=== PATIENT | male | born 1950 | race Caucasian/White ===

== ENCOUNTER 2016-06-25 05:15 | Day surgery (SDC) | payer MEDICARE, BC ==
[2016-06-18 10:00] LABS: HEMATOCRIT 41.8 % (37.9-51.0); HEMOGLOBIN 14.2 g/dL (13.5-17.0); HGB HCT DIFFERENCE 0.8; MEAN CORPUSCULAR HEMOGLOBIN 31.7 pg (27.0-33.4); MEAN CORPUSCULAR HGB CONC 33.9 g/dL (32.0-36.0); MEAN CORPUSCULAR VOLUME 94 fl (80-97); RED BLOOD COUNT 4.46 10^6/uL (4.35-5.55); RED CELL DISTRIBUTION WIDTH 13.5 % (11.5-14.0); WHITE BLOOD COUNT 5.8 10^3/uL (4.0-10.5)
[2016-06-18 10:00] LABS: APPEARANCE,URINE CLEAR; BILIRUBIN,URINE NEGATIVE (NEGATIVE); GLUCOSE, URINE NEGATIVE (NEGATIVE); KETONES,URINE NEGATIVE (NEGATIVE); LEUKOCYTE ESTERASE,URINE NEGATIVE (NEGATIVE); NITRITE,URINE NEGATIVE (NEGATIVE); PROTEIN,URINE NEGATIVE (NEGATIVE); URINE SPECIFIC GRAVITY 1.021; UROBILINOGEN,URINE NEGATIVE mg/dL (<2.0)
[2016-06-18 10:18] LABS: ANION GAP 10 (5-19); BLOOD UREA NITROGEN 20 mg/dL (7-20); CALCIUM 9.1 mg/dL (8.4-10.2); CARBON DIOXIDE 23 mmol/L (22-30); CHLORIDE 107 mmol/L (98-107); CREATININE RESULT 1.01 mg/dL (0.52-1.25); GLUCOSE 91 mg/dL (75-110); POTASSIUM 4.5 mmol/L (3.6-5.0); SODIUM 140.2 mmol/L (137-145)
[~2016-06-25 05:15] MED LIST: CLINDAMYCIN 600 MG/D5W RTU 600 MG/50 ML RTUPB IV PRN; LACTATED RINGERS 1000 ML IV PRN; LIDOCAINE 0.5% INJ-PF (5 MG/ML) 50 ML SDV SUBCUT PRN
[2016-06-25] MEDS ORDERED: LIDOCAINE 1%/EPINEPHRINE INJ 20 ML VIAL ONE (06:41)
[2016-06-25] MEDS ORDERED: BUPIVACAINE HCL 0.25 % INJ/PF (2.5 MG/1 ML) 30 ML VIAL ONE (06:41)
[2016-06-25] MEDS ORDERED: FENTANYL CITRATE INJ/PF 100 MCG/2 ML AMPUL ONE ×2 (07:14)
[2016-06-25] MEDS ORDERED: PROPOFOL INJ 200 MG/20 ML VIAL IV ONE (07:15)
[2016-06-25] MEDS ORDERED: MIDAZOLAM 2 MG/2 ML INJ ONE (07:15)
[2016-06-25] MEDS ORDERED: MEPERIDINE HCL/PF INJ 25 MG/1 ML DISP.SYRIN IV PRN (07:28)
[2016-06-25] MEDS ORDERED: FENTANYL CITRATE INJ/PF 100 MCG/2 ML AMPUL IV PRN ×3 (07:28)
[2016-06-25] MEDS ORDERED: ONDANSETRON HCL INJ/PF 4 MG/2 ML SDV IV PRN (07:28)
[2016-06-25] MEDS ORDERED: DIPHENHYDRAMINE HCL 50 MG/ML VIAL IV PRN (07:28)
--- NOTE | 2016-06-25 07:58 | Operative Report ---
Operative Report DATE OF SURGERY: 06/25/16 PREOPERATIVE DIAGNOSIS: Left carpal tunnel syndrome OPERATION: Left carpal tunnel release ANESTHESIA: LMAC TISSUE REMOVED OR ALTERED: None ESTIMATED BLOOD LOSS: minimal PROCEDURE: With the patient supine on the operating table left upper extremity is prepped and draped sterile fashion. The skin overlying the radial carpal joint and the thenar crease is insufflated with accommodation Marcaine, Xylocaine, and epinephrine. A 15 blade is used to make a skin incision that begins ulnar to the palmaris longus extends obliquely across the radiocarpal crease and into the thenar crease. Sharp dissection is carried incision down to the underlying palmar fascia. A Kermit elevator is placed underneath the palmar fashion. A 15 blade is used to transect the palmar fascia. The median nerve is identified deep to this. It's free proximally and distally from any constriction. The wound is irrigated. His closures and rapid Vicryl followed by nylon. A sterile compressive dressing was applied and the patient's returned to the PACU.
[2016-06-25] MEDS ORDERED: ONDANSETRON 4 MG TAB.RAPDIS SL PRN (08:42)
[2016-06-25] MEDS ORDERED: OXYCODONE HCL IR 5 MG TABLET PO PRN (08:42)
[2016-06-25 09:47] VITALS: BP 122/73
== END 2016-06-25 09:45 | disposition home or self-care (01) ==
LOC: OROUT 05:15
PROVIDERS: ATTEND Orthopaedic Surgery
PROC: 01N50ZZ Release Median Nerve, Open Approach (ICD-10-PCS; principal; 2016-06-25 07:30)
DX: G56.02 Carpal tunnel syndrome, left upper limb (principal); E78.5 Hyperlipidemia, unspecified; M10.9 Gout, unspecified; M19.012 Primary osteoarthritis, left shoulder; M19.011 Primary osteoarthritis, right shoulder; Z88.0 Allergy status to penicillin; Z88.2 Allergy status to sulfonamides
CPT/HCPCS: 36415; 85027; 80048; 81001; 64721; J2250; J3010; J3490; 1810; J2704

== ENCOUNTER 2016-07-30 05:13 | Day surgery (SDC) | payer MEDICARE, BC ==
[2016-07-28 11:08] LABS: ABSOLUTE EOSINOPHILS # (AUTO) 0.1 10^3/uL (0.0-0.6); ABSOLUTE LYMPHOCYTES (AUTO) 1.6 10^3/uL (0.5-4.7); ABSOLUTE MONOCYTES (AUTO) 0.6 10^3/uL (0.1-1.4); ABSOLUTE NEUT (AUTO) 4.5 10^3/uL (1.7-8.2); BASOPHILS % (AUTO) 0.4 % (0-2); EOSINOPHILS % (AUTO) 1.3 % (0-6); HEMATOCRIT 44.5 % (37.9-51.0); HEMOGLOBIN 15.4 g/dL (13.5-17.0); HGB HCT DIFFERENCE 1.7; LYMPHOCYTES % (AUTO) 23.6 % (13-45); MEAN CORPUSCULAR HEMOGLOBIN 32.4 pg (27.0-33.4); MEAN CORPUSCULAR HGB CONC 34.6 g/dL (32.0-36.0); MEAN CORPUSCULAR VOLUME 94 fl (80-97); MONOCYTES % (AUTO) 9.4 % (3-13); RED BLOOD COUNT 4.75 10^6/uL (4.35-5.55); RED CELL DISTRIBUTION WIDTH 13.7 % (11.5-14.0); SEGMENTED NEUTROPHILS % (AUTO) 65.3 % (42-78); WHITE BLOOD COUNT 6.8 10^3/uL (4.0-10.5)
[2016-07-28 11:09] LABS: APPEARANCE,URINE CLEAR; BILIRUBIN,URINE NEGATIVE (NEGATIVE); GLUCOSE, URINE NEGATIVE (NEGATIVE); KETONES,URINE NEGATIVE (NEGATIVE); LEUKOCYTE ESTERASE,URINE NEGATIVE (NEGATIVE); NITRITE,URINE NEGATIVE (NEGATIVE); PROTEIN,URINE NEGATIVE (NEGATIVE); URINE SPECIFIC GRAVITY 1.018; UROBILINOGEN,URINE NEGATIVE mg/dL (<2.0)
[2016-07-28 11:40] LABS: ANION GAP 14 (5-19); BLOOD UREA NITROGEN 20 mg/dL (7-20); CALCIUM 9.5 mg/dL (8.4-10.2); CARBON DIOXIDE 24 mmol/L (22-30); CHLORIDE 106 mmol/L (98-107); CREATININE RESULT 1.03 mg/dL (0.52-1.25); GLUCOSE 92 mg/dL (75-110); POTASSIUM 4.5 mmol/L (3.6-5.0); SODIUM 143.7 mmol/L (137-145)
--- NOTE | 2016-07-28 16:01 | EKG REPORT ---
SEVERITY:- ABNORMAL ECG - SINUS RHYTHM FIRST DEGREE AV BLOCK BORDERLINE LEFT AXIS DEVIATION : Confirmed by: Jori Rangel 28-Jul-2016 16:00:42
[2016-07-30] MEDS ORDERED: LIDOCAINE 0.5% INJ-PF (5 MG/ML) 50 ML SDV ONE (06:48)
[2016-07-30] MEDS ORDERED: FENTANYL CITRATE INJ/PF 100 MCG/2 ML AMPUL ONE (07:07)
[2016-07-30] MEDS ORDERED: HYDROMORPHONE HCL INJ/PF 2 MG/ML AMPULE ONE (07:07)
[2016-07-30] MEDS ORDERED: MIDAZOLAM 2 MG/2 ML INJ ONE (07:07)
[2016-07-30] MEDS ORDERED: LIDOCAINE 2% INJ-PF (20 MG/ML) 10 ML AMPUL ONE (07:08)
[2016-07-30] MEDS ORDERED: PROPOFOL INJ 200 MG/20 ML VIAL IV ONE (07:08)
[2016-07-30] MEDS ORDERED: MEPERIDINE HCL/PF INJ 25 MG/1 ML DISP.SYRIN IV PRN (07:36)
[2016-07-30] MEDS ORDERED: FENTANYL CITRATE INJ/PF 100 MCG/2 ML AMPUL IV PRN ×3 (07:36)
[2016-07-30] MEDS ORDERED: PROMETHAZINE HCL INJ 25 MG/1 ML VIAL IV PRN (07:36)
[2016-07-30] MEDS ORDERED: DIPHENHYDRAMINE HCL 50 MG/ML VIAL IV PRN (07:36)
--- NOTE | 2016-07-30 08:14 | Operative Report ---
Operative Report DATE OF SURGERY: 07/30/16 PREOPERATIVE DIAGNOSIS: Dupuytren's contracture left small finger OPERATION: Dupuytren's excision SURGEON: YOLANDA ALBA ANESTHESIA: GA TISSUE REMOVED OR ALTERED: Fibromatosis to pathology ESTIMATED BLOOD LOSS: Ryley PROCEDURE: With the patient supine on the operating table left upper extremity is prepped and draped in a sterile fashion. The extremities elevated for exsanguination tourniquet inflated 250 torr. A zigzag-type incision is made over the palmar surface of the small finger beginning lateral distal to the DIP joint, medial to lateral from the DIP joint to the PIP joint, and lateral to medial from the from the PIP joint to the MCP joint. It's then extended slightly proximal to the MCP joint. The underlying fiber from from her ptosis and PIP at the region of the MCP joint. There traced distally. The top chroma ptosis is then removed by blunt dissection with a curved clamp. The specimens removed from the field. The wound is irrigated. The finger is examined and there is a 15 hyperextension at the MCP joint and full extension at the PIP joint. This point the tourniquet was deflated. Hemostasis obtained with bipolar cautery. The wound is reapproximated using nylon. A sterile compressive dressing was applied and the patient's returned to the PACU.
[2016-07-30] MEDS: FENTANYL CITRATE INJ/PF 100 MCG/2 ML AMPUL ONE ×2 (08:35→08:44)
[2016-07-30] MEDS ORDERED: OXYCODONE HCL IR 5 MG TABLET PO PRN (08:46)
[2016-07-30] MEDS ORDERED: ONDANSETRON 4 MG TAB.RAPDIS SL PRN (08:46)
[2016-07-30 10:23] VITALS: BP 109/67
== END 2016-07-30 10:30 | disposition home or self-care (01) ==
LOC: OROUT 05:13
PROVIDERS: ATTEND Orthopaedic Surgery
PROC: 0JBK0ZZ Excision of Left Hand Subcutaneous Tissue and Fascia, Open Approach (ICD-10-PCS; principal; 2016-07-30 07:30)
DX: M72.0 Palmar fascial fibromatosis [Dupuytren] (principal); E87.5 Hyperkalemia; I10 Essential (primary) hypertension; Z79.899 Other long term (current) drug therapy; Z88.0 Allergy status to penicillin; Z88.2 Allergy status to sulfonamides
CPT/HCPCS: 93005; 36415; 85025; 80048; 81001; 88304 ×2; 71020; 93010; 26121; J2250; J3010; J3490 ×2; J2704; A9270; 1810; J1170

== ENCOUNTER → 2018-05-13 | Outpatient (CLI) | payer MEDICARE, BC ==
--- NOTE | 2018-05-13 16:29 | RADIOLOGY REPORT (SQ) ---
EXAM DESCRIPTION: HIP LEFT AP/LATERAL COMPLETED DATE/TIME: 05/13/2018 3:25 pm REASON FOR STUDY: PAIN IN LEFT HIP E78.5 HYPERLIPIDEMIA, UNSPECIFIED M25.552 PAIN IN LEFT HIP COMPARISON: 09/20/2015. NUMBER OF VIEWS: Two views. TECHNIQUE: AP pelvis and additional frog-leg view of the left hip. LIMITATIONS: None. FINDINGS: MINERALIZATION: Normal. LEFT HIP: No fracture or dislocation. No worrisome bone lesions. No contour deformity. Marked joint space narrowing with sclerosis and osteophytes. RIGHT HIP: No fracture or dislocation. No worrisome bone lesions. PUBIS AND ISCHIUM: No fracture. PELVIS: No fracture. SACRUM: No fracture or dislocation. No worrisome bone lesions. LOWER LUMBAR SPINE: No fracture or dislocation. No worrisome bone lesions. No significant disc disea se. SOFT TISSUES: No findings. OTHER: No other significant finding. IMPRESSION: MARKED CHRONIC DEGENERATIVE CHANGES IN THE LEFT HIP. NO ACUTE FINDINGS. TECHNICAL DOCUMENTATION: JOB ID: [id number] [employer]- All Rights Reserved Reading location - IP/workstation name: [email or web address]
== END ==
LOC: OD 15:03
PROVIDERS: ATTEND Physician Assistant
DX: M25.552 Pain in left hip (principal); E78.5 Hyperlipidemia, unspecified